=== PATIENT | female | born 1955 | race Caucasian/White ===

== ENCOUNTER 2016-11-09 02:04 | Inpatient (IN) | payer MEDICARE ==
[2016-11-09] VITALS (455 sets, daily range): BP systolic 105–160; BP diastolic 43–84; PULSE 63–79; TEMP 97.9–98.5; O2SAT 92–100
[~2016-11-09] VITALS: Ht 167.6 cm; Wt 132.0 kg
[2016-11-09] MEDS ORDERED: LASIX 40MG TABL40 MG PO (03:46)
[2016-11-09] MEDS ORDERED: COZAAR100 MG PO (03:47)
[2016-11-09] MEDS ORDERED: LIPITOR 10MG10 MG PO (03:48)
[2016-11-09] MEDS ORDERED: K-TAB20 (03:48)
[2016-11-09] MEDS ORDERED: COREG12.5 MG PO (03:48)
[2016-11-09 04:23] LABS: PH 5 (5-8); SQUAMOUS EPITHELIAL 0-2 /hpf; URINE APPEARANCE Clear; URINE BACTERIA Rare /hpf; URINE BILIRUBIN Negative (NEGATIVE); URINE BLOOD 3+ (NEGATIVE); URINE COLOR Straw; URINE GLUCOSE Negative (NEGATIVE); URINE KETONE Negative (NEGATIVE); URINE RBC 20-50 /hpf; URINE UROBILINOGEN Negative (NEGATIVE)
[2016-11-09 06:42] LABS: BASO % 0.4 % (0.0-2.0); EOS # 0.2 (0.0-0.7); EOS % 1.7 % (0-4.0); GRAN # 7.1 (1.4-6.5); GRAN % 72.2 % (42.2-75.2); LYMPH # 1.8 (1.2-3.4); LYMPH % 17.7 % (20.0-51.0); MEAN CELL VOLUME 95 fl (80.0-100.0); MEAN CORPUSCULAR HGB CONC 32 g/dl (33.0-37.0); MEAN PLATELET VOLUME 12.9 fl (7.4-10.4); MONO # 0.8 (0.1-0.6); MONO % 7.8 % (1.7-9.3); PLATELET COUNT 174 K/mm3 (130-400); RED BLOOD COUNT 2.59 M/mm3 (4.10-5.30); REDCELL DISTRIBUTION WIDTH-CV 13.2 % (11.5-14.5); WHITE BLOOD COUNT 9.9 K/mm3 (4.8-10.8)
[2016-11-09 06:44] LABS: HEMATOCRIT 24.5 % (37.0-47.0); HEMOGLOBIN 7.9 g/dl (12.5-16.0); MEAN CORPUSCULAR HEMOGLOBIN 31 pg (27.0-31.0)
[2016-11-09 06:53] LABS: CALCIUM 8.1 mg/dL (8.4-10.2); MAGNESIUM 1.7 mg/dL (1.6-2.3); PHOSPHOROUS 5.8 mg/dL (2.5-4.5); POTASSIUM 3.6 mmol/L (3.4-5.0)
[2016-11-09 06:58] LABS: CREATININE, serum 5.19 mg/dL (0.52-1.25)
[2016-11-10 03:55] VITALS: BP 112/47; PULSE 73; TEMP 97.5
[2016-11-10 07:19] LABS: BASO # 0.1 (0.0-0.2); BASO % 0.5 % (0.0-2.0); EOS # 0.2 (0.0-0.7); EOS % 2.4 % (0-4.0); GRAN # 6.9 (1.4-6.5); GRAN % 73.7 % (42.2-75.2); LYMPH # 1.5 (1.2-3.4); LYMPH % 15.6 % (20.0-51.0); MEAN CELL VOLUME 98 fl (80.0-100.0); MEAN CORPUSCULAR HGB CONC 31 g/dl (33.0-37.0); MEAN PLATELET VOLUME 12.9 fl (7.4-10.4); MONO # 0.7 (0.1-0.6); MONO % 7.5 % (1.7-9.3); PLATELET COUNT 185 K/mm3 (130-400); RED BLOOD COUNT 2.55 M/mm3 (4.10-5.30); REDCELL DISTRIBUTION WIDTH-CV 13.4 % (11.5-14.5); WHITE BLOOD COUNT 9.4 K/mm3 (4.8-10.8)
[2016-11-10 07:21] LABS: HEMOGLOBIN 7.8 g/dl (12.5-16.0); MEAN CORPUSCULAR HEMOGLOBIN 31 pg (27.0-31.0)
[2016-11-10 07:36] LABS: CALCIUM 8.7 mg/dL (8.4-10.2); MAGNESIUM 1.6 mg/dL (1.6-2.3); PHOSPHOROUS 6.3 mg/dL (2.5-4.5); POTASSIUM 3.7 mmol/L (3.4-5.0)
[2016-11-10 07:50] VITALS: BP 114/55; PULSE 65; TEMP 97.8
[2016-11-10 07:52] LABS: CREATININE, serum 5.12 mg/dL (0.52-1.25)
[2016-11-10 11:44] VITALS: BP 113/55; PULSE 63; TEMP 97.8
[2016-11-10 14:14] LABS: PH 5 (5-8); URINE APPEARANCE Hazy; URINE BACTERIA None Seen /hpf; URINE BILIRUBIN Negative (NEGATIVE); URINE BLOOD 2+ (NEGATIVE); URINE COLOR Yellow; URINE GLUCOSE Negative (NEGATIVE); URINE KETONE Negative (NEGATIVE); URINE UROBILINOGEN Negative (NEGATIVE)
[2016-11-10 15:23] VITALS: BP 111/60; PULSE 66; TEMP 97.7
[2016-11-10 19:29] VITALS: BP 127/56; PULSE 67; TEMP 97.9
[2016-11-11 00:15] VITALS: BP 137/72; PULSE 76; TEMP 97.9
[2016-11-11 04:42] VITALS: BP 123/50; PULSE 76; TEMP 97.9
[2016-11-11 06:13] LABS: ALBUMIN 2.9 gm/dL (3.5-5.0); CALCIUM 9.1 mg/dL (8.4-10.2); MAGNESIUM 1.6 mg/dL (1.6-2.3); PHOSPHOROUS 5.9 mg/dL (2.5-4.5); POTASSIUM 3.6 mmol/L (3.4-5.0)
[2016-11-11 06:20] LABS: CREATININE, serum 4.86 mg/dL (0.52-1.25)
[2016-11-11 11:16] VITALS: BP 129/61; PULSE 67; TEMP 97.5
[2016-11-11 16:51] VITALS: BP 126/52; PULSE 56; TEMP 97.8
[2016-11-11 20:54] VITALS: BP 130/56; PULSE 62; TEMP 98.7
[2016-11-12 00:07] VITALS: BP 122/44; PULSE 77; TEMP 98.5
[2016-11-12 04:08] VITALS: BP 105/69; PULSE 74; TEMP 97.9
[2016-11-12 07:14] LABS: ALBUMIN 3.1 gm/dL (3.5-5.0); CALCIUM 9.1 mg/dL (8.4-10.2); PHOSPHOROUS 5.5 mg/dL (2.5-4.5); POTASSIUM 3.6 mmol/L (3.4-5.0)
[2016-11-12 07:40] LABS: CREATININE, serum 4.8 mg/dL (0.52-1.25)
[2016-11-12 08:10] LABS: BASO # 0.1 (0.0-0.2); BASO % 0.5 % (0.0-2.0); EOS # 0.3 (0.0-0.7); EOS % 2.8 % (0-4.0); GRAN # 7.2 (1.4-6.5); GRAN % 71.9 % (42.2-75.2); LYMPH # 1.7 (1.2-3.4); LYMPH % 16.8 % (20.0-51.0); MEAN CELL VOLUME 96 fl (80.0-100.0); MEAN CORPUSCULAR HGB CONC 32 g/dl (33.0-37.0); MEAN PLATELET VOLUME 13.2 fl (7.4-10.4); MONO # 0.8 (0.1-0.6); MONO % 7.7 % (1.7-9.3); PLATELET COUNT 206 K/mm3 (130-400); RED BLOOD COUNT 2.55 M/mm3 (4.10-5.30); REDCELL DISTRIBUTION WIDTH-CV 13.1 % (11.5-14.5); WHITE BLOOD COUNT 10.1 K/mm3 (4.8-10.8)
[2016-11-12 08:11] LABS: HEMATOCRIT 24.5 % (37.0-47.0); HEMOGLOBIN 7.8 g/dl (12.5-16.0); MEAN CORPUSCULAR HEMOGLOBIN 31 pg (27.0-31.0)
[2016-11-12 08:30] VITALS: BP 129/61; PULSE 65; TEMP 96.9
[2016-11-12 11:28] VITALS: BP 139/52; PULSE 67; TEMP 97.6
[2016-11-12 12:37] VITALS: BP 136/60; PULSE 66; TEMP 97.4
[2016-11-12 15:20] VITALS: BP 129/58; PULSE 65; TEMP 97.8
[2016-11-13] VITALS (11 sets, daily range): BP systolic 122–151; BP diastolic 40–110; PULSE 58–96; TEMP 97.5–98.4
[2016-11-13 07:11] LABS: ALBUMIN 3.2 gm/dL (3.5-5.0); CALCIUM 9.1 mg/dL (8.4-10.2); POTASSIUM 3.6 mmol/L (3.4-5.0)
[2016-11-13 07:26] LABS: CREATININE, serum 4.71 mg/dL (0.52-1.25)
[2016-11-13] MEDS ORDERED: PHOS LO PO (14:06)
[2016-11-13] MEDS ORDERED: SODIUM BICARBO650 MG PO (14:06)
[2016-11-13] MEDS ORDERED: COREG 3.123.125 MG/T PO (14:07)
[2016-11-13] MEDS ORDERED: PRILOSEC 20MG20 MG PO (14:11)
[2016-11-13] MEDS ORDERED: CIPRO 500MG TA500 MG PO (14:17)
[2016-11-13] MEDS ORDERED: FLAGYL500 MG PO (14:17)
== END 2016-11-13 20:15 | disposition home or self-care (01) | DRG 683 ==
LOC: ICU 02:04 → MEDICAL 03:13 → ICU 03:31 → MEDICAL 15:09
PROVIDERS: Family Medicine; Internal Medicine Gastroenterology; Internal Medicine Nephrology; Nurse Practitioner; Nurse Practitioner Family; Physician Assistant
PROC: 0D738ZZ Dilation of Lower Esophagus, Via Natural or Artificial Opening Endoscopic (ICD-10-PCS; principal; 2016-11-13 14:00)
DX: N17.9 Acute kidney failure, unspecified (principal); K57.32 Diverticulitis of large intestine without perforation or abscess without bleeding; Z68.42 Body mass index [BMI] 45.0-49.9, adult; K22.2 Esophageal obstruction; K21.0 Gastro-esophageal reflux disease with esophagitis; N18.3 Chronic kidney disease, stage 3 (moderate); I12.9 Hypertensive chronic kidney disease with stage 1 through stage 4 chronic kidney disease, or unspecified chronic kidney disease; Z87.891 Personal history of nicotine dependence; E66.01 Morbid (severe) obesity due to excess calories; N20.0 Calculus of kidney
CPT/HCPCS: 99223-AI; 99231-AI; 99232-AI; 99239; C1769; J0744; J1644; J1650; J2185; J2250; J2405; J3010; J7030

== ENCOUNTER → 2017-01-28 | Outpatient (CLI) | payer MEDICARE ==
[~2017-01-28] MED LIST: CIPRO 500MG TA500 MG PO; COREG 3.123.125 MG/T PO; COREG12.5 MG PO; COZAAR100 MG PO; FERROUS SU325 MG/TAB PO; FIORICET 325 MG1 TA1 PO; FLAGYL500 MG PO; K-TAB20; LASIX 20MG TABL20 MG PO; LASIX 40MG TABL40 MG PO; LIPITOR 10MG10 MG PO; NORCO 325 MG-51 TAB PO; PHOS LO PO; PRILOSEC 20MG20 MG PO; SODIUM BICARBO650 MG PO; TYLENOL 325MG325 MG PO
== END ==
LOC: COL.VAS 09:40
DX: Z01.818 Encounter for other preprocedural examination (principal); N18.4 Chronic kidney disease, stage 4 (severe)
CPT/HCPCS: G0365

== ENCOUNTER → 2017-02-17 | Day surgery (SDC) | payer MEDICARE ==
[~2017-02-17] VITALS: Ht 165.1 cm; Wt 121.2 kg
[2017-02-17 09:32] VITALS: BP 191/89; PULSE 63; TEMP 98.1
[2017-02-17 10:04] LABS: POTASSIUM 3.9 mmol/L (3.4-5.0)
[2017-02-17 10:08] LABS: CREATININE, serum 8.71 mg/dL (0.52-1.25)
[2017-02-17 13:59] VITALS: BP 146/72; PULSE 90; TEMP 97.5
[2017-02-17 14:14] VITALS: BP 95/72; PULSE 79
[2017-02-17 14:29] VITALS: BP 131/74; PULSE 73
[2017-02-17 14:44] VITALS: BP 159/71; PULSE 68
[2017-02-17 15:14] VITALS: BP 150/68; PULSE 71
== END ==
LOC: SDCO 08:57
PROVIDERS: Surgery
DX: I12.0 Hypertensive chronic kidney disease with stage 5 chronic kidney disease or end stage renal disease (principal); N18.5 Chronic kidney disease, stage 5
CPT/HCPCS: J1644; J2704; J7030

== ENCOUNTER → 2017-06-09 | Outpatient (CLI) | payer MEDICARE ==
[~2017-06-09] VITALS: Ht 165.2 cm; Wt 117.0 kg
[~2017-06-09] MED LIST changes: +APRESOLINE 25MG25 MG PO; +DIALYVITE 8001 TAB PO; +VELPHORO PO
[2017-06-09 08:34] VITALS: BP 141/78; PULSE 75
[2017-06-09 09:20] VITALS: BP 115/46; PULSE 69
== END ==
LOC: COL.RAD 08:17
DX: Z49.01 Encounter for fitting and adjustment of extracorporeal dialysis catheter (principal)

== ENCOUNTER 2017-06-24 09:07 | Outpatient (CLI) | payer MEDICARE ==
[2017-06-24] VITALS (9 sets, daily range): BP systolic 118–153; BP diastolic 49–80; PULSE 70–80; TEMP 97.9–98.2
[~2017-06-24] VITALS: Ht 165.2 cm; Wt 120.2 kg
[2017-06-24 10:12] LABS: INR 1.1 (0.8-3.0); PROTHROMBIN TIME 12.6 SECONDS (9.7-12.8)
== END 2017-06-24 16:00 | disposition home or self-care (01) ==
LOC: COL.RAD 09:07
PROVIDERS: Internal Medicine Nephrology
DX: T82.510A Breakdown (mechanical) of surgically created arteriovenous fistula, initial encounter (principal); Z01.812 Encounter for preprocedural laboratory examination; I12.0 Hypertensive chronic kidney disease with stage 5 chronic kidney disease or end stage renal disease; N18.6 End stage renal disease; Z99.2 Dependence on renal dialysis
CPT/HCPCS: J1644; J2250; J3010

== ENCOUNTER 2017-07-20 22:08 | Inpatient (IN) | payer MEDICARE ==
[~2017-07-20] VITALS: Ht 165.1 cm; Wt 120.8 kg
[2017-07-20 22:36] LABS: BASO % 0.3 % (0.0-2.0); EOS # 0.1 (0.0-0.7); EOS % 1.4 % (0-4.0); GRAN % 77.3 % (42.2-75.2); HEMOGLOBIN 10.5 g/dl (12.5-16.0); LYMPH % 12.6 % (20.0-51.0); MEAN CELL VOLUME 101 fl (80.0-100.0); MEAN CORPUSCULAR HEMOGLOBIN 33 pg (27.0-31.0); MEAN CORPUSCULAR HGB CONC 33 g/dl (33.0-37.0); MEAN PLATELET VOLUME 10.7 fl (7.4-10.4); MONO # 0.6 (0.1-0.6); PLATELET COUNT 150 K/mm3 (130-400); RED BLOOD COUNT 3.15 M/mm3 (4.10-5.30); REDCELL DISTRIBUTION WIDTH-CV 14.2 % (11.5-14.5)
[2017-07-20 22:42] LABS: POTASSIUM 4.1 mmol/L (3.4-5.0)
[2017-07-20 22:44] LABS: ARTERIAL BLD GAS O2 SATURATION 95.1 % (92-100); ARTERIAL BLOOD GAS BASE EXCESS 1.7 (-2-2); ARTERIAL BLOOD GAS PCO2 34.2 mmHg (35-45); ARTERIAL BLOOD GAS pH 7.48 (7.35-7.45)
[2017-07-20 22:44] LABS: HEMATOCRIT 31.9 % (37.0-47.0)
[2017-07-20 22:53] LABS: COLLECTION METHOD CLEAN CATCH
[2017-07-20 22:57] LABS: ALBUMIN 3.5 gm/dL (3.5-5.0); BILIRUBIN,TOTAL 0.6 mg/dL (0.0-1.0); CALCIUM 9.2 mg/dL (8.4-10.2); TOTAL PROTEIN 7.3 gm/dL (6.4-8.2)
[2017-07-20 23:00] LABS: MUCOUS Present /lpf; PH 8 (5-8); URINE APPEARANCE Hazy; URINE BACTERIA Rare /hpf; URINE BILIRUBIN Negative (NEGATIVE); URINE BLOOD 2+ (NEGATIVE); URINE COLOR Yellow; URINE GLUCOSE Negative (NEGATIVE); URINE KETONE Negative (NEGATIVE); URINE LEUKOCYTE ESTERASE 3+ (NEGATIVE); URINE NITRATE Negative (NEGATIVE); URINE PROTEIN(semi-quant) 2+ (NEGATIVE); URINE RBC >50 /hpf; URINE UROBILINOGEN Negative (NEGATIVE)
[2017-07-20 23:01] LABS: CREATININE, serum 6.82 mg/dL (0.52-1.25)
[2017-07-20] MEDS ORDERED: DIALYVITE PO (23:07)
[2017-07-20] MEDS ORDERED: [UNRECOGNIZED DRUG - OTHER] PO (23:07)
[2017-07-21] VITALS (7 sets, daily range): BP systolic 86–140; BP diastolic 38–73; PULSE 78–93; TEMP 98–100.7
[2017-07-21 06:18] LABS: INR 1.1 (0.8-3.0); PROTHROMBIN TIME 12.7 SECONDS (9.7-12.8)
[2017-07-21 06:21] LABS: BASO % 0.2 % (0.0-2.0); EOS # 0.1 (0.0-0.7); EOS % 1.3 % (0-4.0); GRAN # 5.7 (1.4-6.5); GRAN % 69.2 % (42.2-75.2); LYMPH # 1.4 (1.2-3.4); LYMPH % 17.4 % (20.0-51.0); MEAN CELL VOLUME 103 fl (80.0-100.0); MEAN CORPUSCULAR HGB CONC 33 g/dl (33.0-37.0); MEAN PLATELET VOLUME 11.3 fl (7.4-10.4); MONO # 0.9 (0.1-0.6); MONO % 11.4 % (1.7-9.3); PLATELET COUNT 154 K/mm3 (130-400); REDCELL DISTRIBUTION WIDTH-CV 14.2 % (11.5-14.5)
[2017-07-21 06:26] LABS: HEMATOCRIT 28.8 % (37.0-47.0); HEMOGLOBIN 9.4 g/dl (12.5-16.0); MEAN CORPUSCULAR HEMOGLOBIN 34 pg (27.0-31.0)
[2017-07-21 06:31] LABS: CALCIUM 8.7 mg/dL (8.4-10.2); PHOSPHOROUS 4.3 mg/dL (2.5-4.5)
[2017-07-21 06:33] LABS: CREATININE, serum 6.97 mg/dL (0.52-1.25)
[2017-07-22 04:03] VITALS: BP 89/59; PULSE 92; TEMP 98.7
[2017-07-22 06:16] LABS: MEAN CELL VOLUME 101 fl (80.0-100.0); MEAN CORPUSCULAR HGB CONC 33 g/dl (33.0-37.0); MEAN PLATELET VOLUME 11.2 fl (7.4-10.4); PLATELET COUNT 175 K/mm3 (130-400); RED BLOOD COUNT 2.81 M/mm3 (4.10-5.30); REDCELL DISTRIBUTION WIDTH-CV 14.5 % (11.5-14.5)
[2017-07-22 06:20] LABS: HEMATOCRIT 28.5 % (37.0-47.0); HEMOGLOBIN 9.3 g/dl (12.5-16.0); MEAN CORPUSCULAR HEMOGLOBIN 33 pg (27.0-31.0)
[2017-07-22 06:28] LABS: CALCIUM 8.6 mg/dL (8.4-10.2); PHOSPHOROUS 4.4 mg/dL (2.5-4.5); POTASSIUM 4.2 mmol/L (3.4-5.0)
[2017-07-22 06:30] LABS: CREATININE, serum 7.83 mg/dL (0.52-1.25)
[2017-07-22 11:23] VITALS: BP 127/51; PULSE 87; TEMP 99.2
[2017-07-22] MEDS ORDERED: LASIX 20MG TABL20 MG PO (14:32)
[2017-07-22] MEDS ORDERED: COREG 6.256.25 MG/TA (14:33)
[2017-07-22] MEDS ORDERED: LASIX 20MG TABL20 MG (14:36)
[2017-07-22] MEDS ORDERED: VANCOCIN HCL1 GM (14:37)
[2017-07-22 15:23] VITALS: BP 99/48; PULSE 88; TEMP 98.6
== END 2017-07-22 20:30 | disposition home or self-care (01) | DRG 314 ==
LOC: COL.ER 22:08 → SURG 22:36
PROVIDERS: Family Medicine; Internal Medicine Nephrology
PROC: 5A1D70Z Performance of Urinary Filtration, Intermittent, Less than 6 Hours Per Day (ICD-10-PCS; principal; 2017-07-22)
DX: T82.7XXA Infection and inflammatory reaction due to other cardiac and vascular devices, implants and grafts, initial encounter (principal); N18.6 End stage renal disease; I12.0 Hypertensive chronic kidney disease with stage 5 chronic kidney disease or end stage renal disease; Z99.2 Dependence on renal dialysis; E66.01 Morbid (severe) obesity due to excess calories; D63.1 Anemia in chronic kidney disease
CPT/HCPCS: J0690; J2185; J3370; J7030; J7050

== ENCOUNTER 2018-01-07 09:49 | Inpatient (IN) | payer MEDICARE ==
[~2018-01-07] VITALS: Ht 165.1 cm; Wt 116.7 kg
[~2018-01-07 09:49] MED LIST changes: +COREG 6.256.25 MG/TA; +DIALYVITE PO; +LASIX 20MG TABL20 MG; +VANCOCIN HCL1 GM; +[UNRECOGNIZED DRUG - OTHER] PO
[2018-02-25] VITALS (10 sets, daily range): BP systolic 112–135; BP diastolic 54–84; PULSE 64–81; TEMP 97.6–98.1
[2018-02-25] MEDS ORDERED: ROXICODONE 55 MG/TAB PO (07:44)
[2018-02-25] MEDS ORDERED: DIALYVITE 8001 TAB PO (07:46)
[2018-02-25] MEDS ORDERED: COUMADIN 1MG1 MG/TAB PO (07:47)
[2018-02-26 00:19] LABS: BASO % 0.1 % (0.0-2.0); GRAN # 11.4 (1.4-6.5); GRAN % 82.6 % (42.2-75.2); LYMPH # 1.3 (1.2-3.4); LYMPH % 9.4 % (20.0-51.0); MEAN CELL VOLUME 107 fl (80.0-100.0); MEAN CORPUSCULAR HGB CONC 31 g/dl (33.0-37.0); MEAN PLATELET VOLUME 10.3 fl (7.4-10.4); MONO % 7.5 % (1.7-9.3); PLATELET COUNT 286 K/mm3 (130-400); RED BLOOD COUNT 2.74 M/mm3 (4.10-5.30); REDCELL DISTRIBUTION WIDTH-CV 14.4 % (11.5-14.5)
[2018-02-26 00:29] LABS: HEMATOCRIT 29.4 % (37.0-47.0); HEMOGLOBIN 9.1 g/dl (12.5-16.0); MEAN CORPUSCULAR HEMOGLOBIN 33 pg (27.0-31.0)
[2018-02-26 00:36] LABS: CALCIUM 9.5 mg/dL (8.4-10.2)
[2018-02-26 00:37] LABS: CREATININE, serum 6.6 mg/dL (0.52-1.25); POTASSIUM 6.4 mmol/L (3.4-5.0)
[2018-02-26 00:52] LABS: C-REACTIVE PROTEIN 4.2 mg/dL (0.0-0.9); ERYTHROCYTE SEDIMENTATION RATE 95 mm/hr (0-30)
[2018-02-26 04:17] VITALS: BP 128/74; PULSE 82; TEMP 98.4
[2018-02-26 08:56] LABS: HEMATOCRIT 26.7 % (37.0-47.0); HEMOGLOBIN 8.6 g/dl (12.5-16.0)
[2018-02-26 08:59] LABS: INR 1.2 (0.8-3.0); PROTHROMBIN TIME 13.3 SECONDS (9.7-12.8)
[2018-02-26 09:03] LABS: CALCIUM 9.9 mg/dL (8.4-10.2)
[2018-02-26 09:27] LABS: POTASSIUM 5.8 mmol/L (3.4-5.0); VANCOMYCIN TROUGH 22.69 ug/mL (7.00-20.00)
[2018-02-26 09:29] LABS: CREATININE, serum 7.38 mg/dL (0.52-1.25)
[2018-02-26 12:47] VITALS: BP 139/65; PULSE 100; TEMP 97.8
[2018-02-26] MEDS ORDERED: COREG 3.123.125 MG/T PO (14:22)
[2018-02-26 15:53] VITALS: BP 138/63; PULSE 71; TEMP 98.2
[2018-02-26 19:19] VITALS: BP 123/57; PULSE 86; TEMP 98.1
[2018-02-27 04:36] VITALS: BP 119/53; PULSE 88; TEMP 98.6
[2018-02-27 06:20] LABS: HEMATOCRIT 23.4 % (37.0-47.0); HEMOGLOBIN 7.4 g/dl (12.5-16.0)
[2018-02-27 06:23] LABS: INR 1.2 (0.8-3.0); PROTHROMBIN TIME 13.1 SECONDS (9.7-12.8)
[2018-02-27 06:25] LABS: CALCIUM 9.5 mg/dL (8.4-10.2); POTASSIUM 4.5 mmol/L (3.4-5.0)
[2018-02-27 06:27] LABS: CREATININE, serum 5.25 mg/dL (0.52-1.25)
[2018-02-27 07:34] VITALS: BP 134/63; BP 88/46; PULSE 97; TEMP 98
[2018-02-27 12:12] VITALS: BP 144/62; PULSE 79; TEMP 97.5
[2018-02-27 12:12] LABS: HEMATOCRIT 23.8 % (37.0-47.0); HEMOGLOBIN 7.6 g/dl (12.5-16.0)
[2018-02-27 15:54] VITALS: BP 130/63; PULSE 88; TEMP 97.5
[2018-02-27 19:15] VITALS: BP 130/72; PULSE 85; TEMP 98.1
[2018-02-28] VITALS (10 sets, daily range): BP systolic 128–165; BP diastolic 52–98; PULSE 9–90; TEMP 97.8–98.6
[2018-02-28 07:07] LABS: MEAN CELL VOLUME 106 fl (80.0-100.0); MEAN CORPUSCULAR HGB CONC 32 g/dl (33.0-37.0); MEAN PLATELET VOLUME 10.7 fl (7.4-10.4); PLATELET COUNT 242 K/mm3 (130-400); RED BLOOD COUNT 2.16 M/mm3 (4.10-5.30); REDCELL DISTRIBUTION WIDTH-CV 14.3 % (11.5-14.5)
[2018-02-28 07:14] LABS: HEMATOCRIT 22.8 % (37.0-47.0); HEMOGLOBIN 7.2 g/dl (12.5-16.0); MEAN CORPUSCULAR HEMOGLOBIN 33 pg (27.0-31.0)
[2018-02-28 07:16] LABS: PROTHROMBIN TIME 11.8 SECONDS (9.7-12.8)
[2018-02-28 07:23] LABS: CALCIUM 9.2 mg/dL (8.4-10.2); POTASSIUM 4.1 mmol/L (3.4-5.0)
[2018-02-28 07:28] LABS: BAND 3 % (0-10); EOSINOPHIL 3 % (0-4); LYMPHOCYTE 33 % (20.0-51.0); METAMYELOCYTE 2 % (0-0); NEUTROPHILS 52 % (42.0-75.2); PLATELET ESTIMATE NORMAL (NORMAL)
[2018-02-28 07:30] LABS: CREATININE, serum 7.32 mg/dL (0.52-1.25); HYPOCHROMIA 1+; STOMATOCYTE 2+
[2018-02-28 11:21] LABS: RETIC # 0.06 M/mm3 (0.02-0.16); RETIC % 2.7 % (0.5-3.52)
[2018-02-28 11:27] LABS: URIC ACID 5.7 mg/dL (2.5-6.2)
[2018-03-01 01:04] VITALS: BP 145/56; PULSE 75
[2018-03-01 04:24] VITALS: BP 124/57; PULSE 75; TEMP 98.7
[2018-03-01 07:28] LABS: BASO % 0.4 % (0.0-2.0); EOS # 0.3 (0.0-0.7); EOS % 2.9 % (0-4.0); GRAN % 61.8 % (42.2-75.2); LYMPH # 2.4 (1.2-3.4); LYMPH % 24.4 % (20.0-51.0); MEAN CORPUSCULAR HGB CONC 32 g/dl (33.0-37.0); MEAN PLATELET VOLUME 10.4 fl (7.4-10.4); MONO # 0.9 (0.1-0.6); MONO % 9.2 % (1.7-9.3); PLATELET COUNT 239 K/mm3 (130-400); RED BLOOD COUNT 2.31 M/mm3 (4.10-5.30); REDCELL DISTRIBUTION WIDTH-CV 16.4 % (11.5-14.5)
[2018-03-01 07:30] LABS: PROTHROMBIN TIME 11.7 SECONDS (9.7-12.8)
[2018-03-01 07:31] LABS: CALCIUM 9.4 mg/dL (8.4-10.2); PHOSPHOROUS 8.4 mg/dL (2.5-4.5); POTASSIUM 4.6 mmol/L (3.4-5.0)
[2018-03-01 07:32] LABS: HEMATOCRIT 23.4 % (37.0-47.0); HEMOGLOBIN 7.4 g/dl (12.5-16.0); MEAN CELL VOLUME 101 fl (80.0-100.0); MEAN CORPUSCULAR HEMOGLOBIN 32 pg (27.0-31.0)
[2018-03-01 07:41] LABS: CREATININE, serum 9.4 mg/dL (0.52-1.25)
[2018-03-01 13:41] LABS: FOLATE (FOLIC ACID) 13.3 ng/mL (7.0-31.4)
== END 2018-03-01 13:00 | DRG 466 ==
LOC: JCC 02-25 06:45
PROVIDERS: Internal Medicine; Internal Medicine Nephrology; Orthopaedic Surgery
PROC: 0SPC0JZ Removal of Synthetic Substitute from Right Knee Joint, Open Approach (ICD-10-PCS; 2018-02-25)
PROC: 0SBC0ZX Excision of Right Knee Joint, Open Approach, Diagnostic (ICD-10-PCS; 2018-02-25)
PROC: 0SRC0EZ Replacement of Right Knee Joint with Articulating Spacer, Open Approach (ICD-10-PCS; principal; 2018-02-25 09:30)
PROC: 5A1D70Z Performance of Urinary Filtration, Intermittent, Less than 6 Hours Per Day (ICD-10-PCS; 2018-02-26)
PROC: 5A1D70Z Performance of Urinary Filtration, Intermittent, Less than 6 Hours Per Day (ICD-10-PCS; 2018-03-01)
DX: T84.53XA Infection and inflammatory reaction due to internal right knee prosthesis, initial encounter (principal); N18.6 End stage renal disease; I12.0 Hypertensive chronic kidney disease with stage 5 chronic kidney disease or end stage renal disease; Z68.41 Body mass index [BMI] 40.0-44.9, adult; Z99.2 Dependence on renal dialysis; E66.01 Morbid (severe) obesity due to excess calories; E78.5 Hyperlipidemia, unspecified; D63.1 Anemia in chronic kidney disease; G47.33 Obstructive sleep apnea (adult) (pediatric); B95.62 Methicillin resistant Staphylococcus aureus infection as the cause of diseases classified elsewhere
CPT/HCPCS: A4314; A9284; C1713; C1776; J0690; J0882; J1650; J1940; J2250; J2270; J2274; J2704; J3010; J3370; J7030; J7050; P9016

== ENCOUNTER 2018-03-01 11:40 | Inpatient (IN) | payer MEDICARE ==
[~2018-03-01] VITALS: Ht 165.1 cm; Wt 117.5 kg
[~2018-03-01 11:40] MED LIST changes: +COUMADIN 1MG1 MG/TAB PO; +ROXICODONE 55 MG/TAB PO
--- NOTE | 2018-03-01 12:35 | NUR ---
Patient arrived to [facility] @ 12:35 via bed following dialysis this morning. Received report from Charlene. Dr. Arguello will be managing patient's meds while in [facility]. Dr. William reviewed meds this afternoon.
[2018-03-01 18:30] VITALS: BP 107/47; PULSE 79; TEMP 97.7
--- NOTE | 2018-03-01 20:25 | NUR ---
Patient had blood sugar of 66 @ 5:02 PM given orange juice and her supper meal. Following eating her meal patient had repeat accucheck and was 423 @ 5:48 PM. Was given her glucophage. Will continue to monitor.
--- NOTE | 2018-03-01 21:15 | NUR ---
HS med and senokot for constipation reviewed and given. Denies pain. Had snack of adriano food cake and fruit. CPAP set up for patient and patient applies. Patient alert and oriented x 4. Aquacel and immobilier CDI to right knee.
--- NOTE | 2018-03-02 05:30 | NUR ---
Patient resting with eyes closed on nursing rounds during NOC. Awakened for vitals. Denies pain or needs. States will take a pain med about 0830 prior to therapy.
[2018-03-02 05:38] VITALS: BP 123/51; PULSE 84; TEMP 97.4
[2018-03-02 06:56] LABS: PROTHROMBIN TIME 11.5 SECONDS (9.7-12.8)
--- NOTE | 2018-03-02 09:56 | NUR ---
Pt states hx of dizziness after HD, denies numbness.
--- NOTE | 2018-03-02 10:25 | NUR ---
Pt very [place], does not have hearing aids, glasses are in place, ate breakfast in bed with head elevated, Aquacel dressing to RLE without drainage, brace in place. Pt later up to w/manju [place] given per request. Isolation precautions in place.
--- NOTE | 2018-03-02 12:29 | NUR ---
Pt eating lunch sitting up in wc with brace to RLE, glasses and gripper socks in place, call light in reach. Passed BIMS. Pily for pain, states norco making her sleepy. Very LITT[place].
--- NOTE | 2018-03-02 13:54 | NUR ---
Pt in bed after PT session, rates pain 6-7/10, but declines addition pain meds at this time as she is concerned about side effects of drowsiness.
--- NOTE | 2018-03-02 15:47 | NUR ---
MAJOR met with the patient to complete initial intake and to review the IPR Team Conference. The patient lives in [place] with her , Charles. She reports independence with ADLs and has a walker and a wheelchair that she uses for when she is outside. She states that she could use a new wheelchair. The patient's PCP is Dr. Shyann Mcgowan and she receives her medications at the [facility] in [place]. She reports no difficulties obtaining her meds. The patient does not have advanced directives and she was not interested in completing them at this time. MAJOR then reviewed with the patient the IPR Team Conference. MAJOR informed the patient of OT's recommendation of a shower chair and where to acquire one. Informed of re-evaluation for next 03/09/18. The patient was in agreeance. MAJOR also discussed the need for outpatient IV antibiotics upon discharge. The patient reports that if the antibiotic is only once a day, then she would be interested in having them done as outpatient at a clinic, either in [place] or [place]. She states she receives dialysis in [place]. The patient had no other questions or concerns at this time. SW to continue to follow.
[2018-03-02 17:49] VITALS: BP 124/59; PULSE 87; TEMP 97.9
--- NOTE | 2018-03-02 21:00 | NUR ---
PT RESTING IN BED. A&O X4. CONTINUED MRSA ISOLATION PRECAUTIONS. IMMOBILIZER TO RLE. DENIES NEED FOR PAIN MEDICATION AT THIS TIME. CALL LIGHT IN REACH. BED ALARM IN PLACE.
--- NOTE | 2018-03-03 03:55 | NUR ---
PT HAS RESTED WELL. USING CPAP.
[2018-03-03 04:15] VITALS: BP 112/49; PULSE 80; TEMP 97.5
--- NOTE | 2018-03-03 07:28 | NUR ---
Report from THANH Reynoso. Contact isolation precautions followed. Pt awakened for breakfast, was wearing CPAP, glasses, RLE brace, and gripper socks in place. Pt independent with meal. [place] for pain per request. Fluid restriction implemented. Pt denies any needs, plan for HD at 0800.
--- NOTE | 2018-03-03 07:55 | NUR ---
Pt to dialysis in bed to ICU 17 with Sravanthi dialysis nurse, who called lab for draw, informed Sravanthi of vanc ordered at end of HD
[2018-03-03 08:22] LABS: BASO # 0.1 (0.0-0.2); BASO % 0.4 % (0.0-2.0); EOS # 0.6 (0.0-0.7); EOS % 4.9 % (0-4.0); GRAN # 8.1 (1.4-6.5); GRAN % 66.1 % (42.2-75.2); LYMPH # 2.4 (1.2-3.4); LYMPH % 19.6 % (20.0-51.0); MEAN CELL VOLUME 100 fl (80.0-100.0); MEAN CORPUSCULAR HGB CONC 33 g/dl (33.0-37.0); MONO % 7.9 % (1.7-9.3); PLATELET COUNT 265 K/mm3 (130-400); RED BLOOD COUNT 2.65 M/mm3 (4.10-5.30); REDCELL DISTRIBUTION WIDTH-CV 17.2 % (11.5-14.5)
[2018-03-03 08:23] LABS: HEMATOCRIT 26.4 % (37.0-47.0); HEMOGLOBIN 8.6 g/dl (12.5-16.0); MEAN CORPUSCULAR HEMOGLOBIN 32 pg (27.0-31.0)
[2018-03-03 08:27] LABS: PROTHROMBIN TIME 11.6 SECONDS (9.7-12.8)
[2018-03-03 08:30] LABS: ALBUMIN 3.2 gm/dL (3.5-5.0); CALCIUM 9.6 mg/dL (8.4-10.2); POTASSIUM 4.3 mmol/L (3.4-5.0)
[2018-03-03 08:40] LABS: CREATININE, serum 8.63 mg/dL (0.52-1.25)
[2018-03-03 08:45] LABS: PHOSPHOROUS 7.8 mg/dL (2.5-4.5)
--- NOTE | 2018-03-03 09:07 | NUR ---
Per pharmacy, no vanc today, reported to Sravanthi dialysis nurse.
--- NOTE | 2018-03-03 11:51 | NUR ---
Pt returned to room after dialysis for lunch, teddy and paper tape to LFA is CDI. Pt given ice pack for Rt knee, pain med per request.
[2018-03-03 16:25] VITALS: BP 125/72; PULSE 90; TEMP 97.3
--- NOTE | 2018-03-03 18:19 | NUR ---
Pt in bed, CPAP machine in reach, ice to R knee elevated on pillow, call light and cell phone user interface engineer in reach. Pt denies any further needs.
--- NOTE | 2018-03-03 21:00 | NUR ---
PT RESTING IN BED. READY FOR SLEEP. CPAP READY TO USE. DENIES NEED FOR PAIN MEDICATION. CALL LIGHT IN REACH. BED ALRM SET.
[2018-03-04 05:19] VITALS: BP 124/59; PULSE 79; TEMP 98.5
[2018-03-04 08:12] LABS: INR 1.1 (0.8-3.0); PROTHROMBIN TIME 12.6 SECONDS (9.7-12.8)
--- NOTE | 2018-03-04 14:35 | NUR ---
MAJOR met with the patient and set up a family conference with her on Wednesday, 03/09, at 1330. MAJOR to continue to follow.
--- NOTE | 2018-03-04 15:57 | NUR ---
Removed patient IV to right forearm per protocol. Will put in another IV later this afternoon.
--- NOTE | 2018-03-04 16:02 | NUR ---
Patient will be getting dialysis on tomorrow, Wednesday per Dr. Arguello.
[2018-03-04 17:54] VITALS: BP 121/47; PULSE 89; TEMP 98.2
--- NOTE | 2018-03-05 03:18 | NUR ---
THE PT CALLED FOR ASSISTANCE TO THE BR WHEN THIS NURSE FIRST ROUNDED, ASSISTED TO THE BSC, C\\O RECTAL DISCOMFORT NO BM FOR "ABOUT A WEEK" "IRON IS VERY CONSTIPATING". THIS NURSE LUBED AND DIDG STIM'ED HER FOR MOD HF BLACK BM, GAVE HER MIRALAZ, SENNA 2 TABS, COLACE 1 CAP. NORCO 2 PER HER REQUEST. ENCOURAGED TO HAVE THE BOWEL PROTOCOL BID UNTIL SHE CAN SPONTANEOUSLY HAVE SOFT FORMED BM'S SPONTANIOUSLY. FIBER TEACHING. APEARS TO GET ADEQUATE SLEEP.
[2018-03-05 05:38] VITALS: BP 129/56; PULSE 73; TEMP 98.5
[2018-03-05 05:44] VITALS: BP 122/62; PULSE 97
[2018-03-05 05:49] VITALS: BP 130/54; PULSE 87
--- NOTE | 2018-03-05 07:32 | NUR ---
THE PT WAS BEDRESTING WITH EYES CLOSED, RESP EVEN. NO C\O PAIN THIS AM, APPEARS TO HAVE SLEPT WELL.
[2018-03-05 09:20] LABS: BASO # 0.1 (0.0-0.2); BASO % 0.4 % (0.0-2.0); EOS # 0.6 (0.0-0.7); EOS % 4.3 % (0-4.0); GRAN # 8.9 (1.4-6.5); GRAN % 67.1 % (42.2-75.2); LYMPH # 2.4 (1.2-3.4); LYMPH % 18.1 % (20.0-51.0); MEAN CELL VOLUME 102 fl (80.0-100.0); MEAN CORPUSCULAR HGB CONC 32 g/dl (33.0-37.0); MEAN PLATELET VOLUME 9.3 fl (7.4-10.4); MONO # 1.2 (0.1-0.6); PLATELET COUNT 286 K/mm3 (130-400); RED BLOOD COUNT 2.62 M/mm3 (4.10-5.30); REDCELL DISTRIBUTION WIDTH-CV 16.8 % (11.5-14.5)
[2018-03-05 09:21] LABS: HEMATOCRIT 26.6 % (37.0-47.0); HEMOGLOBIN 8.5 g/dl (12.5-16.0); MEAN CORPUSCULAR HEMOGLOBIN 32 pg (27.0-31.0)
[2018-03-05 09:28] LABS: INR 1.3 (0.8-3.0); PROTHROMBIN TIME 14.7 SECONDS (9.7-12.8)
[2018-03-05 09:41] LABS: CALCIUM 9.7 mg/dL (8.4-10.2); PHOSPHOROUS 6.6 mg/dL (2.5-4.5); POTASSIUM 4.7 mmol/L (3.4-5.0)
[2018-03-05 09:47] LABS: VANCOMYCIN,RANDOM 16.63 ug/mL
[2018-03-05 09:48] LABS: CREATININE, serum 7.28 mg/dL (0.52-1.25)
--- NOTE | 2018-03-05 11:42 | NUR ---
PT WENT DOWN TO DIALYSIS AT 0900. TAMIO WAS TAKEN DOWN TO [place], DIALYSIS NURSE AT 1120
--- NOTE | 2018-03-05 14:13 | NUR ---
PT SITTING UP IN RECLINER. BEDSIDE TABLE IN REACH WITH WATER, CALL LIGHT, PHONE IN REACH. ALARMS ON.
[2018-03-05 15:29] LABS: KAPPA FREE LIGHT CHAIN-SERUM 18.4 mg/dL (()); LAMDA FREE LIGHT CHAIN SERUM 13.5 mg/dL (())
[2018-03-05 16:56] VITALS: BP 123/59; PULSE 90; TEMP 97.9
--- NOTE | 2018-03-05 17:54 | NUR ---
PT IS SITTING UP IN RECLINER. DENIES PAIN OR NEEDS. VSS. CALL LIGHT IN REACH. WATCHING TV.
--- NOTE | 2018-03-06 02:19 | NUR ---
THE PT WAS BEDRESTIG WITH HER IN TO VISIT, SHE WATCHES TV WHILE HE IS ON HIS PHONE KENNA. THE PT VERBALIZED OF THE DAYS EVENTS, ADMITS TO PAIN, ABOUT A 6\10, WANTED NORCO AND MIRALAX, COLACE AND SENNA. ALL GIVEN. THE PTS DEPARTED FOR HOME, RT IN SET UP BIPAP AND THE PT WAS INTO IT AND RESTING WITH HER EYES CLOSED, RESP EVEN. APPEARS TO GET A SOUND NIGHT SLEEP.
[2018-03-06 05:00] VITALS: BP 128/57; PULSE 80; TEMP 98.5
[2018-03-06 05:05] VITALS: BP 120/55; PULSE 80
--- NOTE | 2018-03-06 05:06 | NUR ---
THE PT WAS BEDRESTING WITH EYES CLOSED, RESP EVEN. AROUSED FOR VS CHECK WITH ORTHOSTATICS TO BE DONE.
[2018-03-06 05:09] VITALS: BP 118/68; PULSE 92
--- NOTE | 2018-03-06 07:49 | NUR ---
Patient resting in bed, eating breakfast, call light in reach, slip proof socks on bed alarm on and pain at 6/10 and given prn norco. Will continue to monitor.
[2018-03-06 09:34] LABS: INR 1.5 (0.8-3.0); PROTHROMBIN TIME 16.8 SECONDS (9.7-12.8)
--- NOTE | 2018-03-06 10:26 | NUR ---
Patient resting in bed at this time. Bed alarm on and call light in reach. Patient having hard stools yesterday and given prn miralax. Will continue to monitor.
--- NOTE | 2018-03-06 13:01 | NUR ---
Educated visiting family members on the reason for gowning up prior to coming into patient room. They were given written material on MRSA and voiced understanding. Put sign on door asking new visitors to contact nurse prior to entering room.
[2018-03-06 15:53] VITALS: BP 115/58; PULSE 75; TEMP 98
--- NOTE | 2018-03-07 02:17 | NUR ---
THE PT WAS RESTING IN BED, NO VISITORS NOTED TONIGHT. DISCUSSED BOWEL SITUATION. SHE STATED 1 MED HARD FORMED AND A SMALL SLIGHTLY SOFTER BUT STILL OVER ALL FEELS CONSTIPATED. CHOICES GIVEN, WANTS TO TRY MIRALAX, SENNA 2 AND A COLACE BID UNTIL GOING SOFT FORMED DAILY. TEACHING HIGH FIBER FOODS. SHE TOOK 2 NORCO FOR C\O 6\10 PAIN RIGHT LOWER EXTREMITY. WITH GOOD RESULTS WITH IN AN HR. APPEARS TO GET ADEQUATE SLEEP.
[2018-03-07 05:24] VITALS: BP 118/56; PULSE 85; TEMP 98.3
--- NOTE | 2018-03-07 08:08 | NUR ---
Report from THANH Epps. Pt in bed for breakfast with head elevated, jackson prior to PT this morning, brought oral care items to tray. Following contact isolation precautions and fluid restriction. Pt denies any further needs. Asked pt to call after return from PT to apply ice to RLE, splint in place
--- NOTE | 2018-03-07 09:39 | NUR ---
Ice to R knee, aqacel intact without shadowing, brace returned to RLE, gripper socks and glasses in place, call light in reach. Pt to recliner with foot rest up. Pily for pain. Pt denies nausea. No dressing on LFA fistula.
--- NOTE | 2018-03-07 12:15 | NUR ---
Pt completed therapies for the day, to chair with feet elevated, call light in reach, she took renvela with lunch, denies any further needs at this time.
--- NOTE | 2018-03-07 14:41 | NUR ---
Pt going to dialysis in wheelchair with leg rest and brace to RLE
[2018-03-07 15:06] LABS: BASO # 0.1 (0.0-0.2); BASO % 0.4 % (0.0-2.0); EOS # 0.5 (0.0-0.7); EOS % 3.4 % (0-4.0); GRAN # 9.2 (1.4-6.5); GRAN % 65.5 % (42.2-75.2); LYMPH # 2.8 (1.2-3.4); LYMPH % 20.2 % (20.0-51.0); MEAN CELL VOLUME 102 fl (80.0-100.0); MEAN CORPUSCULAR HGB CONC 32 g/dl (33.0-37.0); MEAN PLATELET VOLUME 9.6 fl (7.4-10.4); MONO # 1.3 (0.1-0.6); MONO % 9.3 % (1.7-9.3); PLATELET COUNT 323 K/mm3 (130-400); RED BLOOD COUNT 2.69 M/mm3 (4.10-5.30); REDCELL DISTRIBUTION WIDTH-CV 16.5 % (11.5-14.5)
[2018-03-07 15:17] LABS: HEMATOCRIT 27.3 % (37.0-47.0); HEMOGLOBIN 8.7 g/dl (12.5-16.0); MEAN CORPUSCULAR HEMOGLOBIN 32 pg (27.0-31.0)
[2018-03-07 15:21] LABS: INR 1.8 (0.8-3.0); PROTHROMBIN TIME 20.7 SECONDS (9.7-12.8)
[2018-03-07 15:25] LABS: ALBUMIN 3.2 gm/dL (3.5-5.0); C-REACTIVE PROTEIN 2.9 mg/dL (0.0-0.9); CALCIUM 9.6 mg/dL (8.4-10.2); PHOSPHOROUS 6.1 mg/dL (2.5-4.5); POTASSIUM 5.3 mmol/L (3.4-5.0)
[2018-03-07 15:27] LABS: CREATININE, serum 7.49 mg/dL (0.52-1.25)
[2018-03-07 15:28] LABS: VANCOMYCIN,RANDOM 19.97 ug/mL
[2018-03-07 15:29] LABS: ERYTHROCYTE SEDIMENTATION RATE 105 mm/hr (0-30)
[2018-03-07 18:57] VITALS: BP 125/62; PULSE 81; TEMP 98.2
--- NOTE | 2018-03-07 20:00 | NUR ---
Patient in bed resting. Alert and oriented x 3. Shift assessment complete. Brace to right knee. Denies pain at this time. Fistula to left forarm with gauze dressing CDI. Bruit and thrill present. Edema to BLE. Denies further needs at this time.
--- NOTE | 2018-03-07 20:34 | NUR ---
Pt returned from Dialysis at 1830, obtained pt's post-HD wt and attempted to call HD RN but no answer, documented wt in computer. Pt transferred to bed with one assist, gait belt, and walker by WIRE COILER. Brace straps to RLE tightened. Pt eating supper, provided meds, call light, phone ship surveyor. Report to THANH Bullard.
[2018-03-08 06:47] VITALS: BP 116/58; PULSE 86; TEMP 98.2
--- NOTE | 2018-03-08 07:02 | NUR ---
Patient has rested well through the night, minimal needs. CPAP on through the night. Brace to right knee maintained through the night. In bed eating breakfast at this time. Requested pain medication this AM, given per orders. Denies further needs, reported off to day shift.
--- NOTE | 2018-03-08 07:35 | NUR ---
Report from THANH Bullard. Pt sitting up in bed for breakfast, glasses in place, call light in reach. Requests pain med prior to therapy
[2018-03-08 17:26] VITALS: BP 120/64; PULSE 101; TEMP 97.7
--- NOTE | 2018-03-08 20:07 | NUR ---
Pt had multiple extra-large hard BMs with streaks of blood on the outside via BSC. Pt states her last BM with the FURNACE BUILDER assisting was soft. No acute changes. Anticipate HD tomorrow jackson. Report to THANH Lucas.
--- NOTE | 2018-03-08 21:30 | NUR ---
Patient assisted min 1 to bed. Declined HS care. Assisted with RLE into bed. Immobilizer CDI and RLE elevated on pillow. HS meds reviewed along with norco and given. Denies further needs. Manages own CPAP machine.
--- NOTE | 2018-03-09 01:00 | NUR ---
Patient has been resting quietly in bed with eyes closed, CPAP on.
--- NOTE | 2018-03-09 03:36 | NUR ---
Patient rests in bed with eyes closed. Respirations with ease.
[2018-03-09 05:07] VITALS: BP 134/50; PULSE 81; TEMP 98.3
--- NOTE | 2018-03-09 06:06 | NUR ---
PATIENT CONTINUES RESTING SOUNDLY WITH EYES CLOSED. CPAP ON.
--- NOTE | 2018-03-09 17:15 | NUR ---
MAJOR attended a family conference with with the patient and patient's , Charles. Also present was PT, OT, and Combine Driver. Combine Driver started by explaining the purpose of the meeting. The therapists explained how the patient has been functioning. Informed them of discharge 03/15/17, with recommendations for home health PT/OT. Combine Driver also discussed having a home visit. The patient's reports that he will need to look at what works with his schedule and then will inform SW. The patient states that she will also need a new wheelchair. The patient and his were in agreeance to the plan. SW to provide the patient with Medicare.gov's list of home health agencies that serve [place], will help order a wheelchair for the patient, and will check on her dialysis center on if they can provide the outpatient IV antibiotics during dialysis.
[2018-03-09 17:46] VITALS: BP 113/50; PULSE 80; TEMP 97.9
--- NOTE | 2018-03-09 20:34 | NUR ---
Patient attended all therapies today. Was given prn pain meds throughout day with good effect. Patient tolerating diet well today. She left for dialysis at 6:30 PM tonight. Report given to oncoming night nurse.
--- NOTE | 2018-03-09 22:20 | NUR ---
Patient returned from dialysis via wheelchair accompanied by nurse. HS meds along with norco 2 tabs for right knee pain reviewed and given. Declines HS care and snack. Transfers slowly to bed and max assist RLE into bed and elevated on pillow. CPAP set up for patient and patient applies. Denies further needs. [place] so questions require repitition and eye contact.
--- NOTE | 2018-03-10 00:28 | NUR ---
RESTS WITH EYES CLOSED. CPAP ON.
--- NOTE | 2018-03-10 02:17 | NUR ---
Patient rests with eyes closed. Respirations with ease. CPAP on.
[2018-03-10 06:24] VITALS: BP 116/83; PULSE 91; TEMP 97.9
--- NOTE | 2018-03-10 07:51 | NUR ---
Report from THANH Lucas. ID specialist had changed order for IV abx and pt did not receive this in HD last night. This nurse called pharmacy who advised to obtain IV access and give abx. Called IV services to start IV in RUE. Informed pt. Pt ate breakfast in bed, requests pain med prior to therapy and ice water.
--- NOTE | 2018-03-10 09:29 | NUR ---
Pt's aquacel dressing peeling down just at proximal edge, secured down with tape, to be removed tomorrow. No shadowing, re-applied brace. Gripper socks, glasses in place, set up oral cares on tray. Pt transferred OOB w/o cues. Walked to door of room with gait belt, 4WW, SBA.
--- NOTE | 2018-03-10 12:17 | NUR ---
Pt to chair with feet elevated. Brace in place. Pt took renvela at beginning of meal. Gripper socks in place. [place] for pain. Ice to knee.
--- NOTE | 2018-03-10 16:35 | NUR ---
MAJOR met with the patient to DME options and presented Medicare.gov's list of home health agencies that serve [place]. The patient reports that she would prefer [facility]. The patient states that she would also prefer [facility] for the wheelchair. MAJOR to contact and fax a referral to [facility] and contact [facility].
--- NOTE | 2018-03-10 16:53 | NUR ---
Pt to chair for supper. Informed of dialysis tomorrow at noon
[2018-03-10 18:18] VITALS: BP 106/48; PULSE 85; TEMP 98.3
--- NOTE | 2018-03-10 20:45 | NUR ---
MRSA ISOLATION CONTINUES. PT ELY SHOSHONE. READS LIPS WELL. PT DENIES PAIN AT THIS TIME. IMMOBILIZER IN PLACE. TOES WARM TO TOUCH AND PINK. EDEMA TO RLE- ENC ELEVATION. PILLOWS PLACED. CPAP AT BEDSIDE READY FOR USE. CALL SHERIDAN SPAULIDNG. BED ALARM SET.
[2018-03-11 05:51] VITALS: BP 131/59; PULSE 85; TEMP 98.4
--- NOTE | 2018-03-11 07:04 | NUR ---
shift report receved from THANH Gutierrez
--- NOTE | 2018-03-11 07:50 | NUR ---
appears to be sleeping, in bed with CPAP on, awakened for breakfast and assessment, full assessment completed, see interventions for further info, denies needs at this time
--- NOTE | 2018-03-11 08:30 | NUR ---
occupational therapy in to work with patient
[2018-03-11 09:18] VITALS: BP 108/60; PULSE 82
[2018-03-11 09:19] VITALS: BP 115/68; PULSE 98
--- NOTE | 2018-03-11 09:33 | NUR ---
physical therapy now working with patient
--- NOTE | 2018-03-11 10:20 | NUR ---
resting in chair, medicated with roxicodone 10mg po for c/os pain and in anticipation of therapy
--- NOTE | 2018-03-11 11:07 | NUR ---
appears to be sleeping, in bed with eyes closed, resp quiet and easy
--- NOTE | 2018-03-11 12:36 | NUR ---
to dialysis per WC
[2018-03-11 12:58] LABS: BASO # 0.1 (0.0-0.2); BASO % 0.5 % (0.0-2.0); EOS # 0.2 (0.0-0.7); EOS % 1.6 % (0-4.0); GRAN # 9.3 (1.4-6.5); GRAN % 75.2 % (42.2-75.2); LYMPH # 1.9 (1.2-3.4); LYMPH % 15.3 % (20.0-51.0); MEAN CELL VOLUME 104 fl (80.0-100.0); MEAN CORPUSCULAR HGB CONC 31 g/dl (33.0-37.0); MEAN PLATELET VOLUME 9.8 fl (7.4-10.4); MONO # 0.8 (0.1-0.6); MONO % 6.5 % (1.7-9.3); PLATELET COUNT 305 K/mm3 (130-400); RED BLOOD COUNT 2.61 M/mm3 (4.10-5.30); REDCELL DISTRIBUTION WIDTH-CV 16.5 % (11.5-14.5)
[2018-03-11 12:59] LABS: HEMATOCRIT 27.1 % (37.0-47.0); HEMOGLOBIN 8.4 g/dl (12.5-16.0); MEAN CORPUSCULAR HEMOGLOBIN 32 pg (27.0-31.0)
[2018-03-11 13:12] LABS: ALBUMIN 3.6 gm/dL (3.5-5.0); CALCIUM 9.7 mg/dL (8.4-10.2); PHOSPHOROUS 5.9 mg/dL (2.5-4.5); POTASSIUM 4.8 mmol/L (3.4-5.0)
[2018-03-11 13:16] LABS: CREATININE, serum 6.04 mg/dL (0.52-1.25)
--- NOTE | 2018-03-11 13:51 | NUR ---
MAJOR attempted to contact [facility]. MAJOR left a voicemail and faxed over a referral. MAJOR also contacted and faxed over the patient's wheelchair order to Rolando at [facility]. Rolando reports that they can get the wheelchair set up for the patient on Wednesday, 03/14. MAJOR also collaborated with Dr. Nava. Dr. Nava reports that they would be able to administrate the daptomycin in their clinic. MAJOR to inquire what pharmacy to get the med and will continue to follow.
--- NOTE | 2018-03-11 13:57 | NUR ---
remains in dialysis
--- NOTE | 2018-03-11 15:30 | NUR ---
Pinky, at [facility], contacted MAJOR to inform that she had not received the referral. MAJOR then faxed the referral to Pinky's personal fax [phone]. Pinky's cell phone # is [phone].
--- NOTE | 2018-03-11 15:33 | NUR ---
remains in dialysis
[2018-03-11 17:11] VITALS: BP 116/71; PULSE 80; TEMP 97.9
--- NOTE | 2018-03-11 17:45 | NUR ---
awake resting in bed watching TV
--- NOTE | 2018-03-11 18:33 | NUR ---
bedside shift report given to THANH Reynoso
[2018-03-12 05:07] VITALS: BP 105/51; PULSE 81; TEMP 98.2
--- NOTE | 2018-03-12 08:00 | NUR ---
PATIENT IS DROWSY BUT EASILY AROUSABLE THIS MORNING. PATIENT IS A&O. VSS. BOWEL SOUNDS ACTIVE ALL FOUR QUADRANTS. PATIENT TOLERATING FOOD & LIQUIDS WITHOUT ANY COMPLAINTS OF N/V. POSITIVE PEDAL PULSES EQUAL BILATERALLY. NON-PITTING EDEMA TO BLE NOTED. AIRSTRIP AND IMMOBILIZER TO RIGHT KNEE AND ARE CD&I. RIGHT WRIST TO INT. AV FISTULA TO LEFT FOREARM WITH STRONG PULSE. GOOD BRUIT AUSCULTATED & THRILL PALPATED OVER AV FISTULA. CALL LIGHT WITHIN REACH. NO OTHER NEEDS AT THIS TIME.
--- NOTE | 2018-03-12 11:00 | NUR ---
PATIENT REQUESTED MEDICATION FOR GAS. DR. FLORENCE GAVE A VERBAL ORDER FOR SIMETHICONE PRN.
--- NOTE | 2018-03-12 11:40 | NUR ---
PATIENT GIVEN PRN DOSE OF SIMETHICONE FOR GAS DISCOMFORT. PATIENT DENIES ANY OTHER NEEDS AT THIS TIME.
--- NOTE | 2018-03-12 14:00 | NUR ---
PATIENT GIVEN NEPRO SHAKES. PATIENT STATES THAT SHE WILL DRINK THEM THIS EVENING.
--- NOTE | 2018-03-12 16:15 | NUR ---
OZZIE LEFT ON THE BEDSIDE TABLE FOR PATIENT'S EVENING MEAL PER DR. BLANK.
[2018-03-12 18:00] VITALS: BP 118/54; PULSE 95; TEMP 98.3
--- NOTE | 2018-03-13 02:14 | NUR ---
THE PT WAS BEDRESTING INITIAL ROUNDS WERE MADE. HER WAS IN VISITING. SHE DENIED PAIN AT THAT TIME, BUT HAD5/10 PAIN AT HS AND TOOK NORCO 2 TABS, SHE IS VERY COMPLIANT WITH THE USE OF HER BI-PAP. BEDRESTING WITH EYES CLOSED, RESP EVEN. APPEARS TO GET ADEQUATE SLEEP.
[2018-03-13 03:44] VITALS: BP 125/56; PULSE 79; TEMP 97.9
--- NOTE | 2018-03-13 04:26 | NUR ---
THE PT HAS BEEN QUIETLY BEDRESTING WITH EYES CLOSED, RESP EVEN, BI-PAP IN USE.
[2018-03-13 16:39] VITALS: BP 108/55; PULSE 86; TEMP 98.3
--- NOTE | 2018-03-13 18:00 | NUR ---
Medicated for right knee pain in AM after activity. Right knee immobilizer in place. Sat up in recliner chair most of shift. Activity encouraged.
--- NOTE | 2018-03-13 21:00 | NUR ---
PT HAD BEEN IN RECLINER. MARKETING PROGRAM COORDINATOR ASSISTED PT TO BED. CPAP READY FOR USE. SEE MAR FOR ANY PAIN MEDS GIVEN. IMMOBILIZED TO RLE.
[2018-03-14 05:39] VITALS: BP 104/51; PULSE 79; TEMP 98.2
--- NOTE | 2018-03-14 06:27 | NUR ---
PT TO DIALYSIS ROOM #18 ICU PER WC. PT DECLINED BREAKFAST.
[2018-03-14 07:12] LABS: BASO # 0.1 (0.0-0.2); BASO % 0.4 % (0.0-2.0); EOS # 0.3 (0.0-0.7); EOS % 1.8 % (0-4.0); GRAN # 10.3 (1.4-6.5); GRAN % 72.2 % (42.2-75.2); LYMPH # 2.4 (1.2-3.4); LYMPH % 16.9 % (20.0-51.0); MEAN CELL VOLUME 105 fl (80.0-100.0); MEAN CORPUSCULAR HGB CONC 31 g/dl (33.0-37.0); MONO # 1.2 (0.1-0.6); MONO % 8.2 % (1.7-9.3); PLATELET COUNT 309 K/mm3 (130-400); RED BLOOD COUNT 2.59 M/mm3 (4.10-5.30); REDCELL DISTRIBUTION WIDTH-CV 16.7 % (11.5-14.5)
[2018-03-14 07:35] LABS: ALBUMIN 3.3 gm/dL (3.5-5.0); C-REACTIVE PROTEIN 2.5 mg/dL (0.0-0.9); CALCIUM 9.7 mg/dL (8.4-10.2); PHOSPHOROUS 6.7 mg/dL (2.5-4.5); POTASSIUM 5.4 mmol/L (3.4-5.0)
[2018-03-14 07:44] LABS: CREATININE, serum 8.01 mg/dL (0.52-1.25)
[2018-03-14 08:01] LABS: HEMATOCRIT 27.2 % (37.0-47.0); HEMOGLOBIN 8.3 g/dl (12.5-16.0); MEAN CORPUSCULAR HEMOGLOBIN 32 pg (27.0-31.0)
--- NOTE | 2018-03-14 08:49 | NUR ---
Report from THANH Reynoso. Dialysis nurse called to report pt has about one hour remaining, requested pain medication.
[2018-03-14 09:00] LABS: ERYTHROCYTE SEDIMENTATION RATE 117 mm/hr (0-30)
--- NOTE | 2018-03-14 09:04 | NUR ---
Pt given pain med in dialysis, she was resting in chair with eyes closed, brace in place to RLE.
--- NOTE | 2018-03-14 10:43 | NUR ---
Pt returned from dialysis to room for breakfast sitting up in wheelchair.
[2018-03-14 15:33] VITALS: BP 109/65; PULSE 88; TEMP 97.5
--- NOTE | 2018-03-14 16:38 | NUR ---
MAJOR met with patient to discuss iv antibiotics. Patient called her insurance to see what the most affordable option would be. They said it would be the same to pick it up from the pharmacy vs going to outpatient. MAJOR talked with Donna and he said they switched it to vanc for the cost and the new prescription is on the chart. She will get her first dose at dialysis tomorrow and chart picker the prescription on wed from [facility]. [facility] has the vanc in stock and is willing to fill the prescription. MAJOR informed patient the wheelchair will not be in till later this week. [facility] will call her once it is in. MAJOR presented IM to patient and verbally discussed the contents. Patient is agreeable and signed the form. Original placed in chart.
--- NOTE | 2018-03-14 18:16 | NUR ---
Airstrip changed to RLE after pt showered with OT today. Edges well approximated, no drainage, steris intact. Applied new airstrip per pt's request. Pt to chair with call light in reach, watching tv, denies any further needs.
--- NOTE | 2018-03-15 01:25 | NUR ---
THE PT WAS SITTING UP IN HER RECLINER, WATCHING TV THE SHIFT BEGAN, WANTED NORCO FOR HS, REFUSED ALL BOWEL MEDS. SHE FELL ASLEEP THERE, THIS NURSE AROUSED HER FOR CLOTHING CHANGE FOR BED AND TRANSFERRED HER TO THE BED WEARS HER IMMOBILIZER, ELEVATED ON A PILLOW, APPEARS OT GET ADEQUATE SLEEP.
--- NOTE | 2018-03-15 03:15 | NUR ---
THE PT BEDRESTS WITH EYES CLOSED, RESP EVEN
[2018-03-15 04:02] VITALS: BP 130/80; PULSE 75; TEMP 98.5
--- NOTE | 2018-03-15 07:44 | NUR ---
Patient resting in bed at this time, call light in reach and eating breakfast. Reports pain level 3/10 and refused any pain meds. Will continue to monitor. Slept well last night.
[2018-03-15] MEDS ORDERED: ASPIRIN 32325 MG/TA1 PO (10:23)
[2018-03-15] MEDS ORDERED: LASIX 80MG TABL80 MG PO (10:24)
[2018-03-15] MEDS ORDERED: DULCOLAX S10 MG/SUPP RC (10:25)
[2018-03-15] MEDS ORDERED: COLACE 100100 MG/CAP PO (10:25)
[2018-03-15] MEDS ORDERED: COUMADIN 3MG3 MG/TAB PO (10:27)
[2018-03-15] MEDS ORDERED: VANCOCIN HCL1 GM IV (10:32)
--- NOTE | 2018-03-15 10:57 | NUR ---
Dr. William was into see patient this morning. See DC orders. Dr. Arguello was called and he reviewed meds and labs and weekly labs were orderd for every Wednesday to stop on 2018. See DC orders. Call placed to Юлия @ [facility] updating her on time of patient discharge. Reported that patient had received her Lasix this morning prior to being aware that she would be going to dialysis clinic today. Юлия, nurse at clinic voiced understanding. Patient will be receiving Vancomycin from Dr[facility]gu[facility] today and will receive Rx order for Vancomycin on Wednesday from [facility] to give to Dr. Arguello office on . Coumadin dose was changed per Dr. Arguello see DC orders. Patient is currently having her right forearm INT discontinued via Rolando/[facility] as well as dressing changed to right knee. Patient educated on the signs and symptoms of infection to report to PCP upon discharge.
[2018-03-15] MEDS ORDERED: ROXICODONE 55 MG/TAB PO (11:11)
--- NOTE | 2018-03-15 12:20 | NUR ---
Patient Health Summary, Discharge Summary, and Home meds printed and reviewed with patient. Stressed importance of follow up appointments. Patient stated that she would call to set up her 1 week f/u appointment with her PCP, Shyann Mcgowan since her office was closed today. Reviewed home med list noting the change in dose of Coumadin to 2 mg daily instead of every other day when she was admitted and discontinuing of her Coreg. She voiced understanding. Patient given printed prescription for Roxicodone. Patient's belongings gathered by TODD/Rolando and seatbelted for ride home with . Patient will have her transport her directly to Dr. Arguello clinic for dialysis today and to receive her vancomycin. Patient was given her printed Rx for Vancomycin to take home with her. A copy was made for her chart. Patient denied questions.
--- NOTE | 2018-03-15 13:00 | NUR ---
Patient had dressing changed to right knee. No drainage or signs of infection observed to the incision sight. Haritha had been removed last week. Area was secured with air strip. Patient was educated on monitoring the sight for any signs of infection upon discharge. She voiced understanding.
--- NOTE | 2018-03-15 13:43 | NUR ---
Patient reported that she had not received her wheelchair from [facility]. This nurse called and spoke with SW and she will make sure that patient will get her wheelchair delivered to her next week, since it had to be ordered. [facility] will call her Charles @ [phone] or patient [phone] when wheelchair is ready for delivery. Patient voiced understanding. Patient has an old wheelchair to get her buy until the new one is delivered.
--- NOTE | 2018-03-15 14:53 | NUR ---
Wrote void on old Rx ([place], Oxycodone) for patient that came from Dr. Bush upon admission to [facility]. Copy of voided Rx placed with medical records. These were then placed in shread box.
== END 2018-03-15 12:20 | disposition home health service (06) | DRG 949 ==
PROVIDERS: Internal Medicine Nephrology; ADMIT Internal Medicine
PROC: 5A1D70Z Performance of Urinary Filtration, Intermittent, Less than 6 Hours Per Day (ICD-10-PCS; principal; 2018-03-03)
PROC: 5A1D70Z Performance of Urinary Filtration, Intermittent, Less than 6 Hours Per Day (ICD-10-PCS; 2018-03-05)
PROC: 5A1D70Z Performance of Urinary Filtration, Intermittent, Less than 6 Hours Per Day (ICD-10-PCS; 2018-03-07)
PROC: 5A1D70Z Performance of Urinary Filtration, Intermittent, Less than 6 Hours Per Day (ICD-10-PCS; 2018-03-09)
PROC: 5A1D70Z Performance of Urinary Filtration, Intermittent, Less than 6 Hours Per Day (ICD-10-PCS; 2018-03-11)
PROC: 5A1D70Z Performance of Urinary Filtration, Intermittent, Less than 6 Hours Per Day (ICD-10-PCS; 2018-03-14)
DX: T84.53XD Infection and inflammatory reaction due to internal right knee prosthesis, subsequent encounter (principal); N18.6 End stage renal disease; I12.0 Hypertensive chronic kidney disease with stage 5 chronic kidney disease or end stage renal disease; Z68.41 Body mass index [BMI] 40.0-44.9, adult; B95.62 Methicillin resistant Staphylococcus aureus infection as the cause of diseases classified elsewhere; Z99.2 Dependence on renal dialysis; D63.1 Anemia in chronic kidney disease; E78.5 Hyperlipidemia, unspecified; E66.01 Morbid (severe) obesity due to excess calories; G47.33 Obstructive sleep apnea (adult) (pediatric); E87.5 Hyperkalemia; Z88.0 Allergy status to penicillin
CPT/HCPCS: 99222-AI; 99231-AI; 99232-AI; 99239; J0878; J0882; J3370; J7050

== ENCOUNTER → 2018-05-16 | Outpatient (CLI) | payer MEDICARE ==
[~2018-05-16] MED LIST changes: +ANTI-DIARRHEAL2 MG PO; +ASPIRIN 32325 MG/TA1 PO; +ASPIRIN 81M81 MG/TA2 PO; +COLACE 100100 MG/CAP PO; +COUMADIN 2MG2 MG/TAB PO; +COUMADIN 3MG3 MG/TAB PO; +DULCOLAX S10 MG/SUPP RC; +LASIX 80MG TABL80 MG PO; +NORCO 325 MG-7.1 TAB PO; +SENOKOT8.6 MG PO; -TYLENOL 325MG325 MG PO; +TYLENOL 500MG500 MG PO; +VANCOCIN HCL1 GM IV
[2018-05-16 12:00] LABS: HEMOGLOBIN 10.7 g/dl (12.5-16.0); MEAN CELL VOLUME 107 fl (80.0-100.0); MEAN CORPUSCULAR HEMOGLOBIN 33 pg (27.0-31.0); MEAN CORPUSCULAR HGB CONC 31 g/dl (33.0-37.0); MEAN PLATELET VOLUME 10.9 fl (7.4-10.4); PLATELET COUNT 213 K/mm3 (130-400); RED BLOOD COUNT 3.24 M/mm3 (4.10-5.30); REDCELL DISTRIBUTION WIDTH-CV 15.6 % (11.5-14.5)
[2018-05-16 12:08] LABS: HEMATOCRIT 34.7 % (37.0-47.0)
[2018-05-16 12:53] LABS: ERYTHROCYTE SEDIMENTATION RATE 38 mm/hr (0-30)
== END ==
LOC: COL.LAB 10:22
PROVIDERS: Orthopaedic Surgery
DX: Z96.652 Presence of left artificial knee joint (principal)

== ENCOUNTER → 2018-05-16 | Outpatient (CLI) | payer MEDICARE | LOC: COL.LAB 10:25 | DX: A49.02 Methicillin resistant Staphylococcus aureus infection, unspecified site (principal); T84.50XA Infection and inflammatory reaction due to unspecified internal joint prosthesis, initial encounter ==

== ENCOUNTER 2018-05-18 09:42 | Inpatient (IN) | payer MEDICARE ==
[~2018-05-18] VITALS: Ht 165.1 cm; Wt 119.7 kg
[~2018-05-18 09:42] MED LIST changes: -ANTI-DIARRHEAL2 MG PO; -ASPIRIN 81M81 MG/TA2 PO; -COUMADIN 2MG2 MG/TAB PO; -NORCO 325 MG-7.1 TAB PO; -SENOKOT8.6 MG PO
[2018-05-20] MEDS ORDERED: NORCO 325 MG-7.1 TAB PO (07:27)
[2018-05-20] MEDS ORDERED: ASPIRIN 81M81 MG/TA2 PO (07:34)
[2018-05-20] MEDS ORDERED: LASIX 80MG TABL80 MG PO (07:37)
[2018-05-20] MEDS ORDERED: [UNRECOGNIZED DRUG - OTHER] PO (07:39)
[2018-05-20] MEDS ORDERED: DIALYVITE PO (07:39)
[2018-05-20] MEDS ORDERED: COUMADIN 2MG2 MG/TAB PO (07:41)
[2018-05-20] MEDS ORDERED: SENOKOT8.6 MG PO (07:42)
[2018-05-20] MEDS ORDERED: ANTI-DIARRHEAL2 MG PO (07:44)
[2018-06-07] VITALS (10 sets, daily range): BP systolic 108–149; BP diastolic 36–81; PULSE 69–81; TEMP 97.6–97.7
--- NOTE | 2018-06-07 10:45 | NUR ---
admitted ambulatory to room, prepped for surgery, MRSA positive in Dec and swab sent and placed in isolation, explanation given for going to and returning from surgery to her and her , verbalizes understandinag
[2018-06-07] MEDS ORDERED: ROXICODONE 55 MG/TAB PO (11:34)
--- NOTE | 2018-06-07 12:00 | NUR ---
THANH Connor in and started IV
[2018-06-07 12:33] LABS: CALCIUM 9.8 mg/dL (8.4-10.2); POTASSIUM 4.3 mmol/L (3.4-5.0)
[2018-06-07 12:35] LABS: PROTHROMBIN TIME 11.6 SECONDS (9.7-12.8)
[2018-06-07 12:37] LABS: CREATININE, serum 8.31 mg/dL (0.52-1.25)
--- NOTE | 2018-06-07 12:48 | NUR ---
Dr Bush in to see patient and Homer maradiaga CRNA notified of BUN and cratanine
--- NOTE | 2018-06-07 13:30 | NUR ---
resting in bed watching TV, warm blanket provided per her request
--- NOTE | 2018-06-07 14:18 | NUR ---
to surgery per bed
--- NOTE | 2018-06-07 18:48 | NUR ---
remains in surgery, shift report given to THANH Tavera
--- NOTE | 2018-06-07 20:10 | NUR ---
Patient report received from THANH Nowak in PACU. Patient brought to floor in bed. Patient denies n/v at this time. Reports pain, but falls back asleep quickly. Post-op vitals stable. Cryocuff to right knee, SCDs in place. IV to Right hand infusing fluids. Patient has a history of MRSA, contact precautions in place. Fistula to left wrist, bruit and thrill noted. 2.0 L oxygen by NC in place. Patient brought own cpap machine, at bedside, respiratory contacted to set up. at bedside, no needs reported/observed.
[2018-06-08 04:02] VITALS: BP 147/66; PULSE 99; TEMP 98
--- NOTE | 2018-06-08 07:24 | NUR ---
Patient report given to THANH Fishman at bedside. Patient resting comfortably. Plans to go to dialysis first thing this morning.
[2018-06-08 07:40] LABS: INR 1.1 (0.8-3.0); PROTHROMBIN TIME 12.2 SECONDS (9.7-12.8)
--- NOTE | 2018-06-08 10:15 | NUR ---
Patient is in dialysis. She was rating her pain at 10 on a 0-10 scale. [place] given for pain. Denies nausea at this time. No other changes at this time.
--- NOTE | 2018-06-08 15:26 | NUR ---
MAJOR and SW student met with the patient to discuss discharge plan. The patient lives in [place] with her , Charles. She reports independence with ADLs and has a cane, walker, and CPAP from [facility]. She states that she also has home health services through [facility]. SW attempted to contact [facility] and confirm services. The patient's PCP is Shyann Mcgowan and she receives her medications from the [facility] in [place]. She reports no difficulties obtaining her meds. The patient does not have advanced directives and she was not interested in completing them at this time. The patient reports that she plans to return home with and home health through [facility] upon discharge, if able to. SW to continue to follow.
[2018-06-08 17:08] VITALS: BP 147/59; PULSE 86; TEMP 97.8
--- NOTE | 2018-06-08 18:30 | NUR ---
Patient sat up most the day after dialysis. Still rates her pain at 10/10 scale. Discussed trying different pain medications, she stated none of them are working and it always just hurts. No complaints of nausea. No other changes at this time. Giving norco for pain. Call light within reach
--- NOTE | 2018-06-08 21:28 | NUR ---
PT RESTING IN BED. REPORTED NORCO GIVING 8/10 RELIEF. BRUIT AND THRILL NOTED. NO NNEEDS AT THIS TIME. SHIFT ASSESSMENT COMPLETE. CALL LIGHT IN REACH
[2018-06-08 21:29] VITALS: BP 121/41; PULSE 58; TEMP 98.4
[2018-06-08 22:54] VITALS: BP 103/46; PULSE 96; TEMP 99
--- NOTE | 2018-06-09 01:00 | NUR ---
pt reports 8/10 pain, this nurse took norco to room but pt was asleep, did not wake up when entering room. will reassess pain when pt awake. no needs at this time. call light inrech
[2018-06-09 04:28] VITALS: BP 99/53; PULSE 85; TEMP 98.4
--- NOTE | 2018-06-09 06:39 | NUR ---
pt had an uneventful night. reported pain during night. prn meds given when awake and requested. denied pain meds this morning with 5/10 pain. pt given warm water this AM. cypro cuff on. no needs at thsi time. call light in reach
--- NOTE | 2018-06-09 07:00 | NUR ---
report given to dago mcmillan. pt has no needs at this time
[2018-06-09 07:18] LABS: INR 1.1 (0.8-3.0); PROTHROMBIN TIME 12.3 SECONDS (9.7-12.8)
[2018-06-09 08:01] VITALS: BP 127/59; PULSE 91; TEMP 97.4
--- NOTE | 2018-06-09 10:53 | NUR ---
MAJOR met with the patient to review discharge plan and to discuss physical therapies recommendation of home health vs post-acute rehab. The patient reports that she would like to return home with home health. MAJOR presented the patient with [email or web address]'s list of home health agencies. The patient chose to resume home health through [facility]. MAJOR contacted and faxed a referral to Jihan at [facility]. Jihan reports that they can accept the patient for services. MAJOR informed the patient and will continue to follow.
[2018-06-09 11:33] VITALS: BP 117/63; PULSE 85; TEMP 97.9
--- NOTE | 2018-06-09 12:00 | NUR ---
Patient has been doing ok today. [place] given once. She has not wanted additional pain medications. She stated her knee just hurst. She got up to the chair with pt. JetStream on to right knee. No other changes at this time. Call light within reach.
[2018-06-09 15:57] VITALS: BP 111/55; PULSE 94; TEMP 97.6
--- NOTE | 2018-06-09 19:30 | NUR ---
Dressing changed to aqualcel. Haritha intact, no drainage. Denies nausea. Discussed pain and if she wanted pain medications at this time. She stated maybe before going to sleep. She has not had anything for pain since this am. No other changes at this time. Call light within reach.
--- NOTE | 2018-06-09 21:00 | NUR ---
Patient in bed, using CPAP. Awakens easily for HS meds, takes without problem. Denies need for pain meds at this time. SL to right hand, AV fistula to left inner wrist with good thrill palpated. Has cryocuff on right knee, Aquacel drsg on and tyler intact. Will monitor for changes.
[2018-06-09 23:47] VITALS: BP 110/48; PULSE 99; TEMP 98
--- NOTE | 2018-06-10 06:00 | NUR ---
Patient has rested well. No complaints of pain this shift, cryocuff in place. Is to have dialysis today, unsure of time.
[2018-06-10 06:54] LABS: INR 1.1 (0.8-3.0); PROTHROMBIN TIME 12.7 SECONDS (9.7-12.8)
[2018-06-10 07:36] VITALS: BP 111/40; PULSE 83; TEMP 97.6
--- NOTE | 2018-06-10 08:15 | NUR ---
Patient alert and oriented, answers questions appropriately. See assessment. Right knee dressing clean, dry and intact, no drainage noted. Tenderness to right knee. To dialysis at this time.
[2018-06-10 08:38] LABS: CALCIUM 9.4 mg/dL (8.4-10.2); POTASSIUM 4.6 mmol/L (3.4-5.0)
[2018-06-10 08:44] LABS: BASO % 0.4 % (0.0-2.0); EOS # 0.3 (0.0-0.7); EOS % 2.8 % (0-4.0); GRAN % 65.8 % (42.2-75.2); LYMPH # 1.7 (1.2-3.4); LYMPH % 18.3 % (20.0-51.0); MEAN CELL VOLUME 109 fl (80.0-100.0); MEAN CORPUSCULAR HGB CONC 31 g/dl (33.0-37.0); MEAN PLATELET VOLUME 11.2 fl (7.4-10.4); MONO # 1.1 (0.1-0.6); MONO % 12.2 % (1.7-9.3); PLATELET COUNT 179 K/mm3 (130-400); RED BLOOD COUNT 2.73 M/mm3 (4.10-5.30); REDCELL DISTRIBUTION WIDTH-CV 15.2 % (11.5-14.5)
[2018-06-10 08:58] LABS: HEMATOCRIT 29.7 % (37.0-47.0); HEMOGLOBIN 9.2 g/dl (12.5-16.0); MEAN CORPUSCULAR HEMOGLOBIN 34 pg (27.0-31.0)
[2018-06-10 16:04] VITALS: BP 104/51; PULSE 96; TEMP 97.9
--- NOTE | 2018-06-10 20:41 | NUR ---
Patient assessed at this time. Rates pain at a 4 to right knee. Dressing to right knee is CDI. SCDs on bilaterally. KUNAL hose to LLE. AV fistual to left forearm with positive bruit and thrill. Gauze and tape to site is CDI. Denies having SOB and dyspnea. Laying in bed watching TV at this time. Call light is within reach.
[2018-06-10 23:44] VITALS: BP 97/43; PULSE 79; TEMP 98.2
--- NOTE | 2018-06-11 00:07 | NUR ---
Resting in bed with eyes closed at this time. Has denied having any needs or concerns. Call light is within reach.
--- NOTE | 2018-06-11 06:09 | NUR ---
Patient has been resting in bed with eyes closed the majority of the night. Has denied having pain and discomfort. Has been wearing CPAP. Cryocuff to right knee. SCDs on BLE. Continues on contact precautions. Resting in bed with eyes closed at this time. Call light is within reach.
[2018-06-11 08:10] LABS: INR 1.1 (0.8-3.0); PROTHROMBIN TIME 12.8 SECONDS (9.7-12.8)
[2018-06-11 08:18] VITALS: BP 105/51; PULSE 81; TEMP 97.5
--- NOTE | 2018-06-11 11:00 | NUR ---
Patient is sitting up in bed. Explained working on getting her paperwork together for home health. Patient is having pain but did not want to take pain medications at this time. She will be going home later once we have everything together. No other changes at this time.
[2018-06-11 11:45] VITALS: BP 106/42; PULSE 87; TEMP 97.8
[2018-06-11] MEDS ORDERED: NORCO 325 MG-7.1 TAB PO (12:22)
[2018-06-11] MEDS ORDERED: DYNACIN100 M1 PO (12:23)
[2018-06-11] MEDS ORDERED: ROXICODONE 55 MG/TAB PO (12:23)
--- NOTE | 2018-06-11 13:45 | NUR ---
Patient is discharging home. Sent an aquacel with the patient as ordered for her to change her dressing on wednesday. Explained she has scripts to get filled. Explained he wants to see her in 10 days and to call the office Wednesday for a follow up. Explained to continue to increase her activity at home. Home health will follow up. All belongings packed up and sent with patient. Copies of discharge instructions sent with patient. Patient walked out via wheel chair by Ivory JACOBS.
== END 2018-06-11 13:50 | disposition home health service (06) | DRG 466 ==
LOC: SURG 06-07 10:11 → JCC 06-07 10:11 → SURG 06-07 15:50 → JCC 06-07 16:00 → SURG 06-07 19:45
PROVIDERS: Internal Medicine Nephrology; Registered Nurse; ADMIT Orthopaedic Surgery
PROC: 0SPC08Z Removal of Spacer from Right Knee Joint, Open Approach (ICD-10-PCS; 2018-06-07)
PROC: 0SBC0ZX Excision of Right Knee Joint, Open Approach, Diagnostic (ICD-10-PCS; 2018-06-07)
PROC: 0SRC0J9 Replacement of Right Knee Joint with Synthetic Substitute, Cemented, Open Approach (ICD-10-PCS; principal; 2018-06-07 15:50)
PROC: 5A1D70Z Performance of Urinary Filtration, Intermittent, Less than 6 Hours Per Day (ICD-10-PCS; 2018-06-08)
PROC: 5A1D70Z Performance of Urinary Filtration, Intermittent, Less than 6 Hours Per Day (ICD-10-PCS; 2018-06-10)
DX: T84.53XA Infection and inflammatory reaction due to internal right knee prosthesis, initial encounter (principal); N18.6 End stage renal disease; I12.0 Hypertensive chronic kidney disease with stage 5 chronic kidney disease or end stage renal disease; Z68.41 Body mass index [BMI] 40.0-44.9, adult; D63.1 Anemia in chronic kidney disease; E66.01 Morbid (severe) obesity due to excess calories; Z79.01 Long term (current) use of anticoagulants; Z88.0 Allergy status to penicillin; Z96.651 Presence of right artificial knee joint; Z99.2 Dependence on renal dialysis; E78.5 Hyperlipidemia, unspecified; G47.30 Sleep apnea, unspecified; G40.909 Epilepsy, unspecified, not intractable, without status epilepticus
CPT/HCPCS: A9284; C1713; C1776; J0690; J0882; J1100; J1170; J1644; J2250; J2270; J2405; J2704; J3370; J7030; J7042

== ENCOUNTER 2018-05-20 06:01 | Outpatient (CLI) | payer MEDICARE ==
[2018-05-20] VITALS (10 sets, daily range): BP systolic 101–129; BP diastolic 31–82; PULSE 44–101; TEMP 97
[~2018-05-20] VITALS: Ht 162.6 cm; Wt 120.5 kg
[2018-05-20] MEDS ORDERED: NORCO 325 MG-7.1 TAB PO (07:27)
[2018-05-20] MEDS ORDERED: ASPIRIN 81M81 MG/TA2 PO (07:34)
[2018-05-20] MEDS ORDERED: LASIX 80MG TABL80 MG PO (07:37)
[2018-05-20] MEDS ORDERED: DIALYVITE PO (07:39)
[2018-05-20] MEDS ORDERED: [UNRECOGNIZED DRUG - OTHER] PO (07:39)
[2018-05-20] MEDS ORDERED: COUMADIN 2MG2 MG/TAB PO (07:41)
[2018-05-20] MEDS ORDERED: SENOKOT8.6 MG PO (07:42)
[2018-05-20] MEDS ORDERED: ANTI-DIARRHEAL2 MG PO (07:44)
[2018-05-20 09:11] LABS: INR 1.1 (0.8-3.0); PROTHROMBIN TIME 12.1 SECONDS (9.7-12.8)
--- NOTE | 2018-05-20 09:30 | NUR ---
ALL MEDICATIONS GIVEN WITH VERBAL ORDER AND READBACK WITH MD. SEE MERGE FOR ALL MEDICATION ADMIN TIMES. SEE MERGE FOR ALL RASS ASSESSMENTS DURING AND POST PROCEDURE.
--- NOTE | 2018-05-20 12:40 | NUR ---
Discharge instructions given to pt.Pt verbalizes understanding.INT removed,catheter tip intact.Pt escorted out via wheelchair.
--- NOTE | 2018-05-20 13:32 | NUR ---
Pt escortedout via wheelchair
== END 2018-05-20 13:32 | disposition home or self-care (01) ==
LOC: COL.CAR 06:01
PROVIDERS: Internal Medicine Nephrology
DX: T82.868A Thrombosis due to vascular prosthetic devices, implants and grafts, initial encounter (principal); N18.6 End stage renal disease; Z88.0 Allergy status to penicillin; E66.01 Morbid (severe) obesity due to excess calories; Z90.49 Acquired absence of other specified parts of digestive tract; Z90.710 Acquired absence of both cervix and uterus; Z96.653 Presence of artificial knee joint, bilateral; Z79.01 Long term (current) use of anticoagulants; Z79.82 Long term (current) use of aspirin
CPT/HCPCS: J1644; J2250; J3010; Q9967

== ENCOUNTER 2018-07-08 11:52 | Outpatient (CLI) | payer MEDICARE ==
[~2018-07-08] VITALS: Ht 165.1 cm; Wt 120.0 kg
[2018-07-08] VITALS (9 sets, daily range): BP systolic 105–138; BP diastolic 45–69; PULSE 70–97; TEMP 98
[~2018-07-08 11:52] MED LIST changes: +ANTI-DIARRHEAL2 MG PO; +ASPIRIN 81M81 MG/TA2 PO; +COUMADIN 2MG2 MG/TAB PO; +DYNACIN100 M1 PO; +NORCO 325 MG-7.1 TAB PO; +SENOKOT8.6 MG PO
[2018-07-08] MEDS ORDERED: SENOKOT S 50 MG1 TAB PO (12:37)
--- NOTE | 2018-07-08 14:02 | NUR ---
SEE MERGE FOR MEDICATION ADMINISTRATION TIMES WELL INTRA/POST SEDATION ASSESSMENTS. ETCO2 CONNECTED FOR THIS CASE BUT NOT UTILIZED IN MONITORING PER DOCTOR CHIROPRACTIC.
--- NOTE | 2018-07-08 14:55 | NUR ---
Pt returned to EU 10 per bed s/p fistulogram. Pt resting well, family in waiting room.
--- NOTE | 2018-07-08 16:15 | NUR ---
Pt has ambulated and shubham PO intake s n/v.
--- NOTE | 2018-07-08 16:51 | NUR ---
PIV removed from R FA with catheter intact.
--- NOTE | 2018-07-08 16:53 | NUR ---
Pt discharged per w/c by nurse with .
== END 2018-07-08 16:54 | disposition home or self-care (01) ==
LOC: COL.CAR 11:52
DX: T82.898A Other specified complication of vascular prosthetic devices, implants and grafts, initial encounter (principal); Z90.49 Acquired absence of other specified parts of digestive tract; N18.6 End stage renal disease; Z90.710 Acquired absence of both cervix and uterus; Z96.653 Presence of artificial knee joint, bilateral; Z88.0 Allergy status to penicillin; Z79.82 Long term (current) use of aspirin; Z79.01 Long term (current) use of anticoagulants
CPT/HCPCS: J1644; J2250; J3010; Q9967